=== PATIENT | female | born 1990 | race Caucasian/White ===

== ENCOUNTER 2021-07-25 15:00 | Inpatient (IN) | payer OTHER ==
[~2021-07-25] VITALS: Ht 175.3 cm; Wt 81.7 kg
[~2021-07-25 15:00] MED LIST: BUPRENORPHIN-N1 EACH SL; FOLIC ACID 1 MG1 MG PO; LIBRIUM CAP 2525 MG PO; VISTARIL 25 MG25 MG PO; VITAMIN B-1100 M1 PO
[2021-07-25 15:17] LABS: HEMOGLOBIN 13.7 gm/dl (12.3-15.3); RED BLOOD COUNT 3.9 M/UL (4.00-5.10); WHITE BLOOD COUNT 4.8 K/UL (4.5-11.0)
[2021-07-25 16:29] LABS: BUN/CREATININE RATIO 16 (0-10)
[2021-07-26 06:53] LABS: HEMOGLOBIN 12.6 gm/dl (12.3-15.3); RED BLOOD COUNT 3.73 M/UL (4.00-5.10); WHITE BLOOD COUNT 4.5 K/UL (4.5-11.0)
[2021-07-26 08:18] LABS: BUN/CREATININE RATIO 14 (0-10)
[2021-07-26] MEDS ORDERED: CEFDINIR300 MG PO (09:47)
[2021-07-27 03:34] LABS: BUN/CREATININE RATIO 18 (0-10)
[2021-07-27 04:39] LABS: RED BLOOD COUNT 3.71 M/UL (4.00-5.10); WHITE BLOOD COUNT 4.6 K/UL (4.5-11.0)
[2021-07-27 06:10] LABS: HBSAG SCREEN Negative (Negative); HEP A AB, IGM Negative (Negative); HEP B CORE AB, IGM Negative (Negative); HEP C VIRUS AB >11.0 (0.0-0.9)
[2021-07-27 08:14] LABS: HIV SCREEN 4TH GENERATION WRFX Non Reactive (Non Reactive)
[2021-07-28 07:17] LABS: RED BLOOD COUNT 4.01 M/UL (4.00-5.10); WHITE BLOOD COUNT 5.3 K/UL (4.5-11.0)
[2021-07-28 07:58] LABS: BUN/CREATININE RATIO 15 (0-10)
[2021-07-28] MEDS ORDERED: KEPPRA 500 MG500 MG PO (18:14)
[2021-07-28] MEDS ORDERED: VITAMIN B-1100 M1 PO (18:14)
[2021-07-28] MEDS ORDERED: METRONIDAZOLE250 MG PO (18:14)
[2021-07-28] MEDS ORDERED: TAB-A-VITE TA400 MC1 PO (18:14)
== END 2021-07-28 19:39 | disposition home or self-care (01) | DRG 100 ==
LOC: ER1 15:00 → PROG CARE 18:47 → CDU 18:58 → PROG CARE 07-26 01:49 → MED SURG 4 07-27 14:18
PROVIDERS: Emergency Medicine; ADMIT Internal Medicine
PROC: B24BZZZ Ultrasonography of Heart with Aorta (ICD-10-PCS; principal; 2021-07-27)
DX: G40.909 Epilepsy, unspecified, not intractable, without status epilepticus (principal); G92.8 Other toxic encephalopathy; J98.11 Atelectasis; Z20.822 Contact with and (suspected) exposure to COVID-19; B37.49 Other urogenital candidiasis; N12 Tubulo-interstitial nephritis, not specified as acute or chronic; F10.129 Alcohol abuse with intoxication, unspecified; B19.20 Unspecified viral hepatitis C without hepatic coma; F15.10 Other stimulant abuse, uncomplicated; F12.10 Cannabis abuse, uncomplicated; R00.1 Bradycardia, unspecified; F17.210 Nicotine dependence, cigarettes, uncomplicated; R74.01 Elevation of levels of liver transaminase levels; Z87.440 Personal history of urinary (tract) infections; Z98.891 History of uterine scar from previous surgery; Z90.710 Acquired absence of both cervix and uterus; Z85.43 Personal history of malignant neoplasm of ovary; Z82.3 Family history of stroke; Z80.8 Family history of malignant neoplasm of other organs or systems; Z91.14 Patient's other noncompliance with medication regimen; Z98.51 Tubal ligation status; Z82.49 Family history of ischemic heart disease and other diseases of the circulatory system
CPT/HCPCS: ECHO; 36415; 70450; 70553; 71045; 71101; 80053; 80074; 80307; 81001; 82550; 82553; 83605; 83735; 83874; 84439; 84443; 84484; 84702; 85025; 85027; 87040; 87086; 87389; 87661; 93005; 93270; 93306; 96372; 96374; 96375; 99285; A9577; G0378; G0480; J0696; J1885; J1953; J2270; J2405; J2543; U0002